=== PATIENT | female | born 1980 | race Caucasian/White ===

== ENCOUNTER 2019-06-27 07:33 | Day surgery (SDC) | payer MEDICAID ==
[2019-06-27] MEDS ORDERED: Ondansetron 4 MG/2 ML SDV IVPUSH ONE (07:34)
[2019-06-27] MEDS ORDERED: Propofol 200 MG/20 ML SDV IV ONE (07:34)
[2019-06-27] MEDS ORDERED: Midazolam 1 MG/ML 2 ML SDV IV ONE (07:34)
[2019-06-27] MEDS ORDERED: Lidocaine 2% 5 ML SDV INJECT ONE (07:34)
[2019-06-27] MEDS ORDERED: Sodium Chloride 0.9% 10 ML Syringe FLUSH PRN (07:45)
[2019-06-27] MEDS ORDERED: Lactated Ringers 1,000 ML IV SCH (07:45)
--- NOTE | 2019-06-27 10:12 | PCM.OPNOTE ---
- General Post-Op/Procedure Note Date of Surgery/Procedure: 06/27/19 Operative Procedure(s): egd with bx. c scope with bx Findings: gastritis sigmoid polyp (hyperplastic) Pre Op Diagnosis: hx of abd pain epigastric and llq. hx of diarrhea Post-Op Diagnosis: gastritis. sigmoid polyp (hyperplastic) Anesthesia Technique: [facility] [place] Primary Surgeon: Terence Fairchild Anesthesia Provider: Sherice Jeong Pathology: stomach sigmoid polyp random colon biopsies Complications: None Condition: Good Free Text/Narrative:: see dictation
[2019-06-27 11:22] VITALS: BP 135/88; PULSE 65
--- NOTE | 2019-06-27 12:50 | OR ---
DATE OF OPERATION: 06/27/2019 SURGEON: Terence Fairchild MD PROCEDURES PERFORMED: EGD with cold forceps biopsy and colonoscopy with cold forceps biopsy. PREOPERATIVE DIAGNOSES: History of abdominal pain in the epigastrium, left lower quadrant, as well as nonspecific diarrhea. POSTOPERATIVE DIAGNOSES: Gastritis, grossly normal-appearing colon with the exception of a hyperplastic polyp of the sigmoid. INDICATIONS FOR PROCEDURE: This is a 39-year-old white female who is referred with the above-mentioned complaints. She was offered and accepted an upper and lower endoscopy. DESCRIPTION OF PROCEDURE: After an excellent IV sedation was administered, the bite block was inserted. The flexible endoscope was passed without difficulty down the patient's esophagus, into the stomach. The stomach was insufflated. Scope passed through the pylorus, second portion of the duodenum and slowly withdrawn. The following findings were noted. The duodenum was unremarkable. Evaluation of the stomach demonstrated what appeared to be gastritis, worse was actually in the antrum. Biopsies were taken. The esophagus was unremarkable. The stomach was deflated. Scope was removed. Our attention was then turned to the colon. A digital rectal exam was performed. No marked abnormality was noted. Flexible colonoscope was inserted and advanced to the cecum. The prep was excellent. The following findings were noted. Ascending colon, unremarkable, random biopsies were taken. Transverse colon, unremarkable, random biopsies were taken. Descending colon, unremarkable, random biopsies were taken. Sigmoid, a small hyperplastic-appearing polyp, biopsies were taken, submitted in a separate container. The rectum was unremarkable and random biopsies were taken. The patient tolerated the procedure well and was taken to recovery room in good condition. Results by letter. /[id number] /MODL
== END 2019-06-27 11:00 | disposition home or self-care (01) ==
LOC: FB.SDS 07:33
PROVIDERS: ATTEND Surgery
DX: K29.51 Unspecified chronic gastritis with bleeding (principal); K63.5 Polyp of colon; R19.7 Diarrhea, unspecified; F17.210 Nicotine dependence, cigarettes, uncomplicated; F31.9 Bipolar disorder, unspecified; F41.9 Anxiety disorder, unspecified; Z79.899 Other long term (current) drug therapy
CPT/HCPCS: 43239; 45380; 88305; 88342; J2001; J2250; J2405; J2704; J7120

== ENCOUNTER 2021-01-06 17:01 | Emergency (ER) | payer MEDICAID ==
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
[2021-01-06 18:43] VITALS: BP 105/75; PULSE 80
== END 2021-01-06 18:45 | disposition home or self-care (01) ==
LOC: FB.ED 17:01
DX: J06.9 Acute upper respiratory infection, unspecified (principal); E66.9 Obesity, unspecified; Z68.36 Body mass index [BMI] 36.0-36.9, adult; Z20.822 Contact with and (suspected) exposure to COVID-19; Z72.0 Tobacco use; Z79.899 Other long term (current) drug therapy
CPT/HCPCS: 99283; A9270-GY; U0002